=== PATIENT | female | born 1950 | race African-American/Black ===

== ENCOUNTER 2020-01-28 19:31 | Inpatient (IN) | payer MEDICARE, OTHER ==
[~2020-01-28] VITALS: Ht 172.7 cm; Wt 78.9 kg
[2020-01-28] MEDS ORDERED: KETAMINE HCL 50 MG/ML 10ML ONE (19:54)
[2020-01-28] MEDS ORDERED: PROPOFOL 10MG/ML 100ML 100 ML IV ONE (20:00)
[2020-01-28] MEDS ORDERED: KETAMINE HCL 50 MG/ML 10ML IV ONE (20:00)
[2020-01-28] MEDS ORDERED: SUCCINYLCHOLINE CHLORIDE 200MG/10ML IV ONE ×2 (20:00)
[2020-01-28] MEDS ORDERED: MORPHINE SULFATE 4 MG/ML CPJ (NOT FOR IM USE) IV STA (20:06)
[2020-01-28] MEDS ORDERED: ONDANSETRON HCL 4MG/2ML INJ IV STA (20:06)
[2020-01-28] MEDS ORDERED: METHYLPREDNISOLONE SOD SUCC 125 MG/2 ML VIAL IV ONE (20:15)
[2020-01-28] MEDS ORDERED: FAMOTIDINE 20MG/2ML VIAL IV ONE (20:15)
[2020-01-28] MEDS ORDERED: MIDAZOLAM HCL 50 MG in DEXTROSE 5% WATER 40 ML IV ONE (20:15)
[2020-01-28] MEDS ORDERED: DIPHENHYDRAMINE 50MG/ML VIAL IV ONE (20:15)
[2020-01-28] MEDS ORDERED: MIDAZOLAM HCL 2 MG/2 ML VIAL ONE (20:22)
[2020-01-28] MEDS ORDERED: MIDAZOLAM HCL 2 MG/2 ML VIAL IV ONE (20:30)
[2020-01-28] MEDS ORDERED: ACETAMINOPHEN 650MG SUPP PR PRN (20:30)
[2020-01-28] MEDS ORDERED: ONDANSETRON HCL 4MG/2ML INJ IV PRN (20:30)
[2020-01-28 20:48] LABS: BASOPHILS % 1.4 % (0.0-2.0); EOSINOPHILS % 4.7 % (0.0-5.0); HEMATOCRIT. 31.4 % (36.0-48.0); HEMOGLOBIN. 9.7 g/dL (12.0-16.0); LYMPHOCYTES % 20.7 % (20.0-50.0); MEAN CORPUSCULAR HEMOGLOBIN 23.1 pg (28.0-32.0); MEAN CORPUSCULAR VOLUME 74.8 fL (81.0-99.0); MEAN PLATELET VOLUME 8.7 fl (7.4-10.4); MONOCYTES % 10.1 % (2.0-8.0); NEUTROPHILS % 63.1 % (40.0-76.0); PLATELET 410 x1000/uL (130-400)
[2020-01-28 20:53] LABS: CHLORIDE 106 mEq/L (98-107)
[2020-01-28 21:10] LABS: BG BASE EXCESS -4.5 mmol/L (-2.0-2.0); BG CARBOXYHEMOGLOBIN 0.7 % (0.5-1.5); BG DEOXYHEMOGLOBIN 0.5 % (0.0-5.0); BG FRACTION INSPIRED OXYGEN 100; BG HCO3 ACT 22.1 mmol/L (22.0-26.0); BG OXYGEN SATURATION 99.5 % (92.0-98.5); BG OXYHEMOGLOBIN 98.8 % (94.0-97.0); BG PCO2 48.1 mmHg (35.0-45.0); BG PH 7.281 (7.350-7.450); BG PIP 40 cmH2O; BG PO2 312.9 mmHg (75.0-100.0); BG SAMPLE SITE RIGHT BRACHIAL; BG TIDAL VOLUME(mL) 500 mL; BG TOTAL HEMOGLOBIN 9.2 g/dL (12.0-18.0); BG VENT MODE VENT - A/C; BG VENT RATE 16 set
[2020-01-28] MEDS ORDERED: FAMOTIDINE 20MG/2ML VIAL IV SCH ×2 (22:00)
[2020-01-28] MEDS ORDERED: MIDAZOLAM HCL 50 MG in DEXTROSE 5% WATER 40 ML IV SCH (23:00)
[2020-01-29] VITALS (50 sets, daily range): BP systolic 97–144; BP diastolic 64–101
[2020-01-29] MEDS: METHYLPREDNISOLONE SOD SUCC 125 MG/2 ML VIAL IV SCH ×4 (01:00→18:07)
[2020-01-29] MEDS: HEPARIN 5000 UNITS/ML VIAL SUBCUT SCH ×3 (01:00→21:46)
[2020-01-29] MEDS ORDERED: PROPOFOL 10MG/ML 100ML 100 ML IV PRN ×2 (01:15→02:00)
[2020-01-29] MEDS ORDERED: MIDAZOLAM HCL 50 MG in DEXTROSE 5% WATER 40 ML IV PRN ×4 (02:00)
[2020-01-29] MEDS ORDERED: IPRATROPIUM/ALBUTEROL 0.5-3(2.5)MG/3ML NEB HHN PRN (02:00)
[2020-01-29] MEDS: SODIUM CHLORIDE 0.9% 1,000 ML IV SCH ×3 (02:57→23:00)
[2020-01-29] MEDS: FENTANYL CITRATE/PF 500 MCG in SODIUM CHLORIDE 0.9% 40 ML IV PRN (03:00)
[2020-01-29] MEDS: DIPHENHYDRAMINE 50MG/ML VIAL IV SCH ×3 (05:39→18:07)
[2020-01-29 05:56] LABS: CHLORIDE 110 mEq/L (98-107)
[2020-01-29 05:58] LABS: BASOPHILS % 0.9 % (0.0-2.0); EOSINOPHILS % 0.9 % (0.0-5.0); HEMATOCRIT. 29.9 % (36.0-48.0); HEMOGLOBIN. 9.2 g/dL (12.0-16.0); LYMPHOCYTES % 10.2 % (20.0-50.0); MEAN CORPUSCULAR HEMOGLOBIN 23.2 pg (28.0-32.0); MEAN CORPUSCULAR VOLUME 75.7 fL (81.0-99.0); MEAN PLATELET VOLUME 8.7 fl (7.4-10.4); MONOCYTES % 9.4 % (2.0-8.0); NEUTROPHILS % 78.6 % (40.0-76.0); PLATELET 300 x1000/uL (130-400); RED BLOOD CELL COUNT 3.95 mill/uL (4.2-5.4); RED CELL DISTRIBUTION WIDTH 19.9 % (11.6-14.6)
[2020-01-29] MEDS: IPRATROPIUM/ALBUTEROL 0.5-3(2.5)MG/3ML NEB HHN SCH ×3 (08:54→21:27)
[2020-01-29] MEDS ORDERED: GLIP5TAB12 MT (08:55)
[2020-01-29] MEDS ORDERED: BENA20TA10 MT (08:55)
[2020-01-29] MEDS ORDERED: ALBUL MT (08:55)
[2020-01-29] MEDS ORDERED: SIMV-43 PO (08:55)
[2020-01-29] MEDS ORDERED: AMLO10TA80 MT (08:55)
[2020-01-29] MEDS ORDERED: CALC-3 MT (08:55)
[2020-01-29 08:57] LABS: BG CARBOXYHEMOGLOBIN 0.3 % (0.5-1.5); BG DEOXYHEMOGLOBIN 4.3 % (0.0-5.0); BG FRACTION INSPIRED OXYGEN 40; BG HCO3 ACT 18.9 mmol/L (22.0-26.0); BG METHEMOGLOBIN 0.2 % (0.0-1.5); BG OXYGEN SATURATION 95.7 % (92.0-98.5); BG OXYHEMOGLOBIN 95.2 % (94.0-97.0); BG PCO2 34.8 mmHg (35.0-45.0); BG PH 7.352 (7.350-7.450); BG PO2 85.5 mmHg (75.0-100.0); BG SAMPLE SITE RIGHT RADIAL; BG TIDAL VOLUME(mL) 500 mL; BG TOTAL HEMOGLOBIN 9.7 g/dL (12.0-18.0); BG VENT MODE VENT - A/C; BG VENT RATE 16 set
[2020-01-29] MEDS ORDERED: FAMOTIDINE 20MG/2ML VIAL IV SCH (09:00)
[2020-01-29] MEDS: FAMOTIDINE 20MG/2ML VIAL IV SCH (09:35)
[2020-01-29] MEDS ORDERED: DEXTROSE 50% WATER 50ML SYRINGE IV PRN (09:45)
[2020-01-29] MEDS: INSULIN LISPRO 100 UNITS/ML SUBCUT SCH ×2 (12:00→18:00)
[2020-01-29] MEDS: BLOOD SUGAR DIAGNOSTIC STRIP TEST SCH ×2 (12:00→18:07)
[2020-01-29] MEDS: PROPOFOL 10MG/ML 100ML 100 ML IV PRN (15:12)
[2020-01-29] MEDS: AMLODIPINE 2.5MG TABLET NG SCH (21:45)
[2020-01-29] MEDS ORDERED: DIPHENHYDRAMINE 50MG/ML VIAL IV SCH (22:00)
[2020-01-30] VITALS (49 sets, daily range): BP systolic 116–157; BP diastolic 61–97
[2020-01-30] MEDS: METHYLPREDNISOLONE SOD SUCC 125 MG/2 ML VIAL IV SCH ×4 (00:58→17:47)
[2020-01-30] MEDS: DIPHENHYDRAMINE 50MG/ML VIAL IV SCH ×4 (00:58→17:47)
[2020-01-30] MEDS: PROPOFOL 10MG/ML 100ML 100 ML IV PRN ×5 (01:26→22:41)
[2020-01-30] MEDS: IPRATROPIUM/ALBUTEROL 0.5-3(2.5)MG/3ML NEB HHN SCH ×4 (02:38→20:20)
[2020-01-30 05:41] LABS: CHLORIDE 112 mEq/L (98-107)
[2020-01-30 05:49] LABS: HEMATOCRIT. 30.6 % (36.0-48.0); HEMOGLOBIN. 9.4 g/dL (12.0-16.0); MEAN CORPUSCULAR HEMOGLOBIN 23.1 pg (28.0-32.0); MEAN CORPUSCULAR VOLUME 75.6 fL (81.0-99.0); PLATELET 327 x1000/uL (130-400); RED BLOOD CELL COUNT 4.05 mill/uL (4.2-5.4)
[2020-01-30 05:58] LABS: HDL CHOLESTEROL 82 mg/dL (40-59); LDL CHOLESTEROL 98 mg/dL (5-100)
[2020-01-30] MEDS: INSULIN LISPRO 100 UNITS/ML SUBCUT SCH ×4 (06:00→18:00)
[2020-01-30] MEDS: BLOOD SUGAR DIAGNOSTIC STRIP TEST SCH ×4 (06:54→18:58)
[2020-01-30 08:02] LABS: PLATELET ESTIMATE NORMAL
[2020-01-30] MEDS: FAMOTIDINE 20MG/2ML VIAL IV SCH (08:43)
[2020-01-30] MEDS: AMLODIPINE 2.5MG TABLET NG SCH ×2 (08:43→21:07)
[2020-01-30] MEDS: HEPARIN 5000 UNITS/ML VIAL SUBCUT SCH ×2 (08:43→21:08)
[2020-01-30] MEDS: FENTANYL CITRATE/PF 500 MCG in SODIUM CHLORIDE 0.9% 40 ML IV PRN (13:27)
[2020-01-31] VITALS (51 sets, daily range): BP systolic 118–164; BP diastolic 67–100
[2020-01-31] MEDS: DIPHENHYDRAMINE 50MG/ML VIAL IV SCH ×2 (00:34→05:03)
[2020-01-31] MEDS: METHYLPREDNISOLONE SOD SUCC 125 MG/2 ML VIAL IV SCH ×5 (00:34→23:50)
[2020-01-31] MEDS: BLOOD SUGAR DIAGNOSTIC STRIP TEST SCH ×5 (00:44→23:41)
[2020-01-31] MEDS: INSULIN LISPRO 100 UNITS/ML SUBCUT SCH ×5 (01:18→23:50)
[2020-01-31] MEDS: IPRATROPIUM/ALBUTEROL 0.5-3(2.5)MG/3ML NEB HHN SCH ×4 (01:53→20:05)
[2020-01-31] MEDS: PROPOFOL 10MG/ML 100ML 100 ML IV PRN ×4 (04:15→22:42)
[2020-01-31 05:51] LABS: HEMATOCRIT. 28.8 % (36.0-48.0); HEMOGLOBIN. 8.8 g/dL (12.0-16.0); MEAN CORPUSCULAR HEMOGLOBIN 22.9 pg (28.0-32.0); MEAN CORPUSCULAR VOLUME 75.1 fL (81.0-99.0); MEAN PLATELET VOLUME 8.9 fl (7.4-10.4); PLATELET 366 x1000/uL (130-400); RED BLOOD CELL COUNT 3.83 mill/uL (4.2-5.4); RED CELL DISTRIBUTION WIDTH 20.5 % (11.6-14.6)
[2020-01-31 06:41] LABS: CHLORIDE 112 mEq/L (98-107)
[2020-01-31] MEDS: HEPARIN 5000 UNITS/ML VIAL SUBCUT SCH ×2 (08:19→20:55)
[2020-01-31] MEDS: AMLODIPINE 2.5MG TABLET NG SCH ×2 (08:19→20:54)
[2020-01-31] MEDS: FAMOTIDINE 20MG/2ML VIAL IV SCH (08:19)
[2020-01-31 09:18] LABS: BG BASE EXCESS -1.6 mmol/L (-2.0-2.0); BG CARBOXYHEMOGLOBIN 0.3 % (0.5-1.5); BG FRACTION INSPIRED OXYGEN 40; BG HCO3 ACT 23.3 mmol/L (22.0-26.0); BG METHEMOGLOBIN 0.1 % (0.0-1.5); BG OXYHEMOGLOBIN 93.6 % (94.0-97.0); BG PCO2 39.6 mmHg (35.0-45.0); BG PH 7.387 (7.350-7.450); BG PO2 72.7 mmHg (75.0-100.0); BG SAMPLE SITE RIGHT RADIAL; BG TIDAL VOLUME(mL) 500 mL; BG TOTAL HEMOGLOBIN 9.5 g/dL (12.0-18.0); BG VENT MODE VENT - A/C; BG VENT RATE 16 set
[2020-01-31 10:58] LABS: PLATELET ESTIMATE NORMAL
[2020-01-31] MEDS: DIPHENHYDRAMINE 50MG/ML VIAL IV PRN ×3 (11:24→23:50)
[2020-02-01] VITALS (45 sets, daily range): BP systolic 120–175; BP diastolic 77–108
[2020-02-01] MEDS: IPRATROPIUM/ALBUTEROL 0.5-3(2.5)MG/3ML NEB HHN SCH ×4 (01:32→20:54)
[2020-02-01] MEDS: PROPOFOL 10MG/ML 100ML 100 ML IV PRN ×3 (03:36→21:48)
[2020-02-01 05:28] LABS: HEMATOCRIT. 29.1 % (36.0-48.0); HEMOGLOBIN. 8.9 g/dL (12.0-16.0); MEAN CORPUSCULAR HEMOGLOBIN 22.9 pg (28.0-32.0); MEAN CORPUSCULAR VOLUME 75.1 fL (81.0-99.0); MEAN PLATELET VOLUME 8.4 fl (7.4-10.4); PLATELET 376 x1000/uL (130-400); RED BLOOD CELL COUNT 3.88 mill/uL (4.2-5.4); RED CELL DISTRIBUTION WIDTH 19.6 % (11.6-14.6)
[2020-02-01 05:40] LABS: CHLORIDE 113 mEq/L (98-107)
[2020-02-01] MEDS: BLOOD SUGAR DIAGNOSTIC STRIP TEST SCH ×3 (05:43→17:19)
[2020-02-01] MEDS: DIPHENHYDRAMINE 50MG/ML VIAL IV PRN ×3 (05:53→20:35)
[2020-02-01] MEDS: METHYLPREDNISOLONE SOD SUCC 125 MG/2 ML VIAL IV SCH ×3 (05:53→17:12)
[2020-02-01] MEDS: INSULIN LISPRO 100 UNITS/ML SUBCUT SCH ×3 (05:55→17:22)
[2020-02-01] MEDS: FAMOTIDINE 20MG/2ML VIAL IV SCH (08:21)
[2020-02-01] MEDS: HEPARIN 5000 UNITS/ML VIAL SUBCUT SCH ×2 (08:22→20:33)
[2020-02-01] MEDS: AMLODIPINE 2.5MG TABLET NG SCH (08:23)
[2020-02-01 10:14] LABS: BG BASE EXCESS -4.5 mmol/L (-2.0-2.0); BG CARBOXYHEMOGLOBIN 0.2 % (0.5-1.5); BG FRACTION INSPIRED OXYGEN 50; BG METHEMOGLOBIN 0.4 % (0.0-1.5); BG OXYHEMOGLOBIN 94.4 % (94.0-97.0); BG PCO2 34.5 mmHg (35.0-45.0); BG PH 7.382 (7.350-7.450); BG PO2 84.7 mmHg (75.0-100.0); BG SAMPLE SITE RIGHT RADIAL; BG TIDAL VOLUME(mL) 500 mL; BG TOTAL HEMOGLOBIN 8.7 g/dL (12.0-18.0); BG VENT MODE VENT - A/C; BG VENT RATE 16 set
[2020-02-01 10:20] LABS: PLATELET ESTIMATE NORMAL
[2020-02-01] MEDS: AMLODIPINE 5MG TABLET NG SCH (20:33)
[2020-02-02] VITALS (47 sets, daily range): BP systolic 139–174; BP diastolic 78–106
[2020-02-02] MEDS: BLOOD SUGAR DIAGNOSTIC STRIP TEST SCH ×4 (00:14→17:08)
[2020-02-02] MEDS: METHYLPREDNISOLONE SOD SUCC 125 MG/2 ML VIAL IV SCH ×4 (00:19→17:07)
[2020-02-02] MEDS: INSULIN LISPRO 100 UNITS/ML SUBCUT SCH ×4 (00:20→17:08)
[2020-02-02] MEDS: IPRATROPIUM/ALBUTEROL 0.5-3(2.5)MG/3ML NEB HHN SCH ×4 (01:59→20:21)
[2020-02-02 05:34] LABS: HEMATOCRIT. 29.6 % (36.0-48.0); HEMOGLOBIN. 9.1 g/dL (12.0-16.0); MEAN CORPUSCULAR HEMOGLOBIN 23.1 pg (28.0-32.0); MEAN CORPUSCULAR VOLUME 74.9 fL (81.0-99.0); MEAN PLATELET VOLUME 8.6 fl (7.4-10.4); PLATELET 361 x1000/uL (130-400); RED BLOOD CELL COUNT 3.96 mill/uL (4.2-5.4); RED CELL DISTRIBUTION WIDTH 20.3 % (11.6-14.6)
[2020-02-02 05:41] LABS: CHLORIDE 113 mEq/L (98-107)
[2020-02-02] MEDS: PROPOFOL 10MG/ML 100ML 100 ML IV PRN (06:49)
[2020-02-02 08:07] LABS: PLATELET ESTIMATE NORMAL
[2020-02-02] MEDS: HEPARIN 5000 UNITS/ML VIAL SUBCUT SCH ×2 (08:10→22:04)
[2020-02-02] MEDS: DIPHENHYDRAMINE 50MG/ML VIAL IV SCH ×3 (08:10→22:04)
[2020-02-02] MEDS: FAMOTIDINE 20MG/2ML VIAL IV SCH ×2 (08:10→22:04)
[2020-02-02] MEDS: AMLODIPINE 5MG TABLET NG SCH ×2 (08:11→22:04)
[2020-02-02] MEDS: HYDRALAZINE 20MG/ML VIAL IV PRN (09:03)
[2020-02-02 09:19] LABS: BG BASE EXCESS 1.5 mmol/L (-2.0-2.0); BG CARBOXYHEMOGLOBIN 0.3 % (0.5-1.5); BG DEOXYHEMOGLOBIN 2.9 % (0.0-5.0); BG FRACTION INSPIRED OXYGEN 50; BG HCO3 ACT 26.7 mmol/L (22.0-26.0); BG METHEMOGLOBIN 0.1 % (0.0-1.5); BG OXYGEN SATURATION 97.1 % (92.0-98.5); BG OXYHEMOGLOBIN 96.7 % (94.0-97.0); BG PCO2 44.9 mmHg (35.0-45.0); BG PH 7.392 (7.350-7.450); BG PO2 94.6 mmHg (75.0-100.0); BG SAMPLE SITE RIGHT RADIAL; BG TIDAL VOLUME(mL) 500 mL; BG TOTAL HEMOGLOBIN 9.6 g/dL (12.0-18.0); BG VENT MODE VENT - A/C; BG VENT RATE 12 set
[2020-02-02] MEDS: HYDRALAZINE HCL 25MG TABLET NG SCH ×3 (12:00→22:39)
[2020-02-02] MEDS ORDERED: PROPOFOL 10MG/ML 100ML 100 ML IV PRN (13:15)
[2020-02-02] MEDS ORDERED: MORPHINE SULFATE 2 MG/ML CPJ (NOT FOR IM USE) IV PRN (14:15)
[2020-02-02] MEDS: MIDAZOLAM HCL 50 MG in DEXTROSE 5% WATER 40 ML IV PRN (15:41)
[2020-02-02] MEDS: MONTELUKAST SODIUM 10MG TABLET PO SCH (15:41)
[2020-02-02] MEDS: RACEPINEPHRINE 2.25% 0.5ML NEB VIAL HHN SCH ×2 (17:19→21:11)
[2020-02-02] MEDS ORDERED: DIPHENHYDRAMINE 50MG/ML VIAL IV SCH (20:00)
[2020-02-03] VITALS (38 sets, daily range): BP systolic 143–163; BP diastolic 82–118
[2020-02-03] MEDS: IPRATROPIUM/ALBUTEROL 0.5-3(2.5)MG/3ML NEB HHN SCH ×6 (00:08→19:53)
[2020-02-03] MEDS: RACEPINEPHRINE 2.25% 0.5ML NEB VIAL HHN SCH ×4 (00:08→15:41)
[2020-02-03] MEDS: BLOOD SUGAR DIAGNOSTIC STRIP TEST SCH ×5 (00:27→23:36)
[2020-02-03] MEDS: METHYLPREDNISOLONE SOD SUCC 125 MG/2 ML VIAL IV SCH ×5 (00:33→23:40)
[2020-02-03] MEDS: INSULIN LISPRO 100 UNITS/ML SUBCUT SCH ×5 (00:34→23:40)
[2020-02-03] MEDS: DIPHENHYDRAMINE 50MG/ML VIAL IV SCH ×2 (03:20→09:08)
[2020-02-03] MEDS: HYDRALAZINE HCL 25MG TABLET NG SCH (05:31)
[2020-02-03 05:33] LABS: HEMATOCRIT. 28.7 % (36.0-48.0); HEMOGLOBIN. 8.8 g/dL (12.0-16.0); MEAN CORPUSCULAR HEMOGLOBIN 22.6 pg (28.0-32.0); MEAN CORPUSCULAR VOLUME 74.1 fL (81.0-99.0); MEAN PLATELET VOLUME 8.8 fl (7.4-10.4); PLATELET 346 x1000/uL (130-400); RED BLOOD CELL COUNT 3.88 mill/uL (4.2-5.4); RED CELL DISTRIBUTION WIDTH 20.2 % (11.6-14.6)
[2020-02-03 05:39] LABS: CHLORIDE 110 mEq/L (98-107)
[2020-02-03] MEDS: MIDAZOLAM HCL 50 MG in DEXTROSE 5% WATER 40 ML IV PRN (07:19)
[2020-02-03 07:47] LABS: NUCLEATED RED BLOOD CELLS 1 /100 WBC
[2020-02-03 07:48] LABS: PLATELET ESTIMATE NORMAL
[2020-02-03] MEDS: FAMOTIDINE 20MG/2ML VIAL IV SCH ×2 (08:23→21:37)
[2020-02-03] MEDS: HEPARIN 5000 UNITS/ML VIAL SUBCUT SCH ×2 (08:23→21:36)
[2020-02-03] MEDS: AMLODIPINE 5MG TABLET NG SCH ×2 (08:24→21:36)
[2020-02-03] MEDS ORDERED: INSULIN GLARGINE UD 100 UNITS/ML SYR SUBCUT SCH (10:00)
[2020-02-03] MEDS: HYDRALAZINE HCL 50MG TABLET NG SCH ×2 (13:12→23:40)
[2020-02-03] MEDS ORDERED: DOCUSATE SODIUM SUGAR FREE 100MG/10ML UDC NG PRN (13:30)
[2020-02-03] MEDS ORDERED: SENNOSIDES/DOCUSATE SOD 8.6/50MG TABLET NG PRN (13:30)
[2020-02-03] MEDS ORDERED: POLYETHYLENE GLYCOL 3350 (17GM) 1 DOSE PACK NG PRN (13:30)
[2020-02-03] MEDS ORDERED: MAGNESIUM HYDROXIDE 400MG/5ML 30ML UDC NG PRN (13:30)
[2020-02-03] MEDS ORDERED: MAGNESIUM CITRATE 300ML SOLUTION NG NR (14:30)
[2020-02-03] MEDS: CEFTRIAXONE 1 G PREMIX 50 ML IV SCH (16:01)
[2020-02-03] MEDS: MONTELUKAST SODIUM 10MG TABLET PO SCH (17:08)
[2020-02-04] VITALS (43 sets, daily range): BP systolic 127–176; BP diastolic 82–110
[2020-02-04] MEDS: IPRATROPIUM/ALBUTEROL 0.5-3(2.5)MG/3ML NEB HHN SCH (00:04)
[2020-02-04] MEDS: MIDAZOLAM HCL 50 MG in DEXTROSE 5% WATER 40 ML IV PRN (04:53)
[2020-02-04] MEDS: BLOOD SUGAR DIAGNOSTIC STRIP TEST SCH ×3 (05:08→17:15)
[2020-02-04] MEDS: METHYLPREDNISOLONE SOD SUCC 125 MG/2 ML VIAL IV SCH ×2 (05:18→11:23)
[2020-02-04] MEDS: HYDRALAZINE HCL 50MG TABLET NG SCH ×3 (05:18→21:58)
[2020-02-04] MEDS: INSULIN LISPRO 100 UNITS/ML SUBCUT SCH ×3 (05:20→17:20)
[2020-02-04 05:49] LABS: HEMATOCRIT. 29.1 % (36.0-48.0); MEAN CORPUSCULAR VOLUME 74.3 fL (81.0-99.0); MEAN PLATELET VOLUME 8.8 fl (7.4-10.4); PLATELET 349 x1000/uL (130-400); RED BLOOD CELL COUNT 3.92 mill/uL (4.2-5.4); RED CELL DISTRIBUTION WIDTH 19.6 % (11.6-14.6)
[2020-02-04 05:53] LABS: CHLORIDE 107 mEq/L (98-107)
[2020-02-04] MEDS: FAMOTIDINE 20MG/2ML VIAL IV SCH ×2 (08:10→21:57)
[2020-02-04] MEDS: HEPARIN 5000 UNITS/ML VIAL SUBCUT SCH ×2 (08:10→21:57)
[2020-02-04] MEDS: AMLODIPINE 5MG TABLET NG SCH ×2 (08:10→21:00)
[2020-02-04] MEDS: BISACODYL 10MG SUPP PR PRN (09:23)
[2020-02-04] MEDS ORDERED: INSULIN GLARGINE UD 100 UNITS/ML SYR SUBCUT SCH (10:00)
[2020-02-04] MEDS: HYDRALAZINE 20MG/ML VIAL IV PRN (10:11)
[2020-02-04 10:27] LABS: PLATELET ESTIMATE NORMAL
[2020-02-04] MEDS ORDERED: CLONIDINE 0.1MG TABLET PO SCH (10:30)
[2020-02-04] MEDS: CEFTRIAXONE 1 G PREMIX 50 ML IV SCH (15:14)
[2020-02-04] MEDS: MONTELUKAST SODIUM 10MG TABLET PO SCH (17:00)
[2020-02-04] MEDS ORDERED: CLONIDINE 0.1MG TABLET NG SCH (18:00)
[2020-02-04] MEDS: METHYLPREDNISOLONE SOD SUCC 40 MG/ML VIAL IV SCH (18:34)
[2020-02-04] MEDS: LABETALOL HCL 100MG TABLET PO SCH (21:00)
[2020-02-05] VITALS (37 sets, daily range): BP systolic 110–154; BP diastolic 68–102
[2020-02-05] MEDS: ACETYLCYSTEINE 100MG/ML 10% VIAL 4ML INH SCH ×3 (00:14→15:38)
[2020-02-05] MEDS: IPRATROPIUM/ALBUTEROL 0.5-3(2.5)MG/3ML NEB HHN SCH ×3 (00:14→13:37)
[2020-02-05] MEDS: METHYLPREDNISOLONE SOD SUCC 40 MG/ML VIAL IV SCH ×4 (00:21→17:15)
[2020-02-05] MEDS: BLOOD SUGAR DIAGNOSTIC STRIP TEST SCH ×4 (00:21→17:10)
[2020-02-05] MEDS: MIDAZOLAM HCL 50 MG in DEXTROSE 5% WATER 40 ML IV PRN ×2 (05:10→21:40)
[2020-02-05] MEDS: DIPHENHYDRAMINE 50MG/ML VIAL IV PRN ×2 (05:10→14:58)
[2020-02-05] MEDS: INSULIN LISPRO 100 UNITS/ML SUBCUT SCH ×4 (05:24→17:26)
[2020-02-05 05:50] LABS: HEMATOCRIT. 30.6 % (36.0-48.0); HEMOGLOBIN. 9.3 g/dL (12.0-16.0); MEAN CORPUSCULAR HEMOGLOBIN 22.6 pg (28.0-32.0); MEAN CORPUSCULAR VOLUME 74.5 fL (81.0-99.0); MEAN PLATELET VOLUME 8.6 fl (7.4-10.4); PLATELET 314 x1000/uL (130-400); RED BLOOD CELL COUNT 4.11 mill/uL (4.2-5.4); RED CELL DISTRIBUTION WIDTH 19.8 % (11.6-14.6)
[2020-02-05 05:53] LABS: CHLORIDE 109 mEq/L (98-107)
[2020-02-05] MEDS: HYDRALAZINE HCL 50MG TABLET NG SCH ×4 (06:00→21:17)
[2020-02-05 07:51] LABS: PLATELET ESTIMATE NORMAL
[2020-02-05] MEDS: LABETALOL HCL 100MG TABLET PO SCH ×2 (09:00→21:00)
[2020-02-05] MEDS: AMLODIPINE 5MG TABLET NG SCH ×2 (09:45→21:00)
[2020-02-05] MEDS: FAMOTIDINE 20MG/2ML VIAL IV SCH (09:45)
[2020-02-05] MEDS: HEPARIN 5000 UNITS/ML VIAL SUBCUT SCH ×2 (09:45→21:39)
[2020-02-05] MEDS ORDERED: INSULIN GLARGINE UD 100 UNITS/ML SYR SUBCUT SCH (10:00)
[2020-02-05] MEDS: INSULIN GLARGINE UD 100 UNITS/ML SYR SUBCUT SCH (10:11)
[2020-02-05] MEDS: AMPICILLIN SOD/SULBACTAM NA 1.5 G in SODIUM CHLORIDE 0.9% 50 ML IV SCH ×2 (14:45→17:15)
[2020-02-05] MEDS: PANTOPRAZOLE SODIUM 40 MG/VIAL IV SCH ×2 (14:57→21:39)
[2020-02-05] MEDS: MONTELUKAST SODIUM 10MG TABLET PO SCH (16:57)
[2020-02-05] MEDS: BISACODYL 10MG SUPP PR PRN (17:15)
[2020-02-06] VITALS (40 sets, daily range): BP systolic 94–186; BP diastolic 51–96
[2020-02-06] MEDS: BLOOD SUGAR DIAGNOSTIC STRIP TEST SCH ×5 (00:01→23:12)
[2020-02-06] MEDS: AMPICILLIN SOD/SULBACTAM NA 1.5 G in SODIUM CHLORIDE 0.9% 50 ML IV SCH ×5 (00:01→23:12)
[2020-02-06] MEDS: METHYLPREDNISOLONE SOD SUCC 40 MG/ML VIAL IV SCH ×5 (00:01→23:12)
[2020-02-06] MEDS: DIPHENHYDRAMINE 50MG/ML VIAL IV PRN ×2 (00:01→09:12)
[2020-02-06] MEDS: IPRATROPIUM/ALBUTEROL 0.5-3(2.5)MG/3ML NEB HHN SCH ×3 (00:43→16:07)
[2020-02-06] MEDS: ACETYLCYSTEINE 100MG/ML 10% VIAL 4ML INH SCH ×3 (00:44→16:07)
[2020-02-06] MEDS: HYDRALAZINE HCL 50MG TABLET NG SCH ×3 (04:55→23:12)
[2020-02-06 05:36] LABS: HEMATOCRIT. 30.2 % (36.0-48.0); HEMOGLOBIN. 9.2 g/dL (12.0-16.0); MEAN CORPUSCULAR HEMOGLOBIN 22.8 pg (28.0-32.0); MEAN CORPUSCULAR VOLUME 74.7 fL (81.0-99.0); MEAN PLATELET VOLUME 8.8 fl (7.4-10.4); PLATELET 281 x1000/uL (130-400); RED BLOOD CELL COUNT 4.05 mill/uL (4.2-5.4); RED CELL DISTRIBUTION WIDTH 19.8 % (11.6-14.6)
[2020-02-06 05:37] LABS: CHLORIDE 110 mEq/L (98-107)
[2020-02-06] MEDS: INSULIN LISPRO 100 UNITS/ML SUBCUT SCH ×4 (05:42→17:15)
[2020-02-06] MEDS: AMLODIPINE 5MG TABLET NG SCH ×2 (09:00→21:27)
[2020-02-06] MEDS: LABETALOL HCL 100MG TABLET PO SCH ×2 (09:00→21:27)
[2020-02-06] MEDS: PANTOPRAZOLE SODIUM 40 MG/VIAL IV SCH ×2 (09:12→21:06)
[2020-02-06] MEDS: HEPARIN 5000 UNITS/ML VIAL SUBCUT SCH ×2 (09:13→21:07)
[2020-02-06 09:15] LABS: BG BASE EXCESS 6.8 mmol/L (-2.0-2.0); BG CARBOXYHEMOGLOBIN 0.5 % (0.5-1.5); BG DEOXYHEMOGLOBIN 5.3 % (0.0-5.0); BG FRACTION INSPIRED OXYGEN 40; BG HCO3 ACT 31.2 mmol/L (22.0-26.0); BG METHEMOGLOBIN 0.2 % (0.0-1.5); BG OXYGEN SATURATION 94.7 % (92.0-98.5); BG PCO2 43.9 mmHg (35.0-45.0); BG PH 7.469 (7.350-7.450); BG PO2 74.4 mmHg (75.0-100.0); BG PRESSURE SUPPORT 15; BG SAMPLE SITE RIGHT RADIAL; BG TIDAL VOLUME(mL) 500 mL; BG TOTAL HEMOGLOBIN 10.3 g/dL (12.0-18.0); BG VENT MODE VENT - SIMV; BG VENT RATE 12 set
[2020-02-06 09:20] LABS: PLATELET ESTIMATE NORMAL
[2020-02-06] MEDS: INSULIN GLARGINE UD 100 UNITS/ML SYR SUBCUT SCH (12:55)
[2020-02-06] MEDS: MONTELUKAST SODIUM 10MG TABLET PO SCH (16:31)
[2020-02-06 17:21] LABS: BG BASE EXCESS 6.5 mmol/L (-2.0-2.0); BG CARBOXYHEMOGLOBIN 0.1 % (0.5-1.5); BG FRACTION INSPIRED OXYGEN 40; BG HCO3 ACT 30.8 mmol/L (22.0-26.0); BG METHEMOGLOBIN 0.3 % (0.0-1.5); BG OXYHEMOGLOBIN 93.6 % (94.0-97.0); BG PH 7.473 (7.350-7.450); BG PRESSURE SUPPORT 8; BG SAMPLE SITE RIGHT RADIAL; BG TOTAL HEMOGLOBIN 10.6 g/dL (12.0-18.0); BG VENT MODE VENT - CPAP
[2020-02-07] VITALS (23 sets, daily range): BP systolic 58–155; BP diastolic 31–102
[2020-02-07] MEDS: IPRATROPIUM/ALBUTEROL 0.5-3(2.5)MG/3ML NEB HHN SCH ×2 (00:44→01:53)
[2020-02-07] MEDS: ACETYLCYSTEINE 100MG/ML 10% VIAL 4ML INH SCH (00:44)
[2020-02-07] MEDS: METHYLPREDNISOLONE SOD SUCC 40 MG/ML VIAL IV SCH ×2 (05:23→17:42)
[2020-02-07] MEDS: HYDRALAZINE HCL 50MG TABLET NG SCH ×3 (05:23→21:00)
[2020-02-07] MEDS: AMPICILLIN SOD/SULBACTAM NA 1.5 G in SODIUM CHLORIDE 0.9% 50 ML IV SCH ×4 (05:24→23:48)
[2020-02-07] MEDS: BLOOD SUGAR DIAGNOSTIC STRIP TEST SCH ×4 (05:24→23:52)
[2020-02-07] MEDS: INSULIN LISPRO 100 UNITS/ML SUBCUT SCH ×5 (05:36→23:56)
[2020-02-07 06:37] LABS: HEMATOCRIT. 32.1 % (36.0-48.0); HEMOGLOBIN. 9.6 g/dL (12.0-16.0); MEAN CORPUSCULAR HEMOGLOBIN 22.4 pg (28.0-32.0); MEAN CORPUSCULAR VOLUME 74.6 fL (81.0-99.0); MEAN PLATELET VOLUME 9.7 fl (7.4-10.4); PLATELET 256 x1000/uL (130-400); RED CELL DISTRIBUTION WIDTH 20.6 % (11.6-14.6)
[2020-02-07 06:41] LABS: CHLORIDE 112 mEq/L (98-107)
[2020-02-07] MEDS: LABETALOL HCL 100MG TABLET PO SCH ×2 (09:00→20:39)
[2020-02-07] MEDS: PANTOPRAZOLE SODIUM 40 MG/VIAL IV SCH (09:47)
[2020-02-07] MEDS: AMLODIPINE 5MG TABLET NG SCH ×2 (09:47→20:40)
[2020-02-07] MEDS: HEPARIN 5000 UNITS/ML VIAL SUBCUT SCH ×2 (09:47→20:39)
[2020-02-07] MEDS: INSULIN GLARGINE UD 100 UNITS/ML SYR SUBCUT SCH (09:49)
[2020-02-07 12:09] LABS: FOLIC ACID (FOLATE) SERUM 9.9 ng/mL (>5.38)
[2020-02-07 12:16] LABS: TOTAL IRON BINDING CAPACITY 343 ug/dL (250-450)
[2020-02-07 13:45] LABS: PLATELET ESTIMATE NORMAL
[2020-02-07] MEDS: MONTELUKAST SODIUM 10MG TABLET PO SCH (17:42)
[2020-02-07] MEDS: DIPHENHYDRAMINE 50MG/ML VIAL IV PRN (20:40)
[2020-02-07] MEDS: FAMOTIDINE 20MG/2ML VIAL IV SCH (20:40)
[2020-02-08] VITALS (12 sets, daily range): BP systolic 126–158; BP diastolic 55–97
[2020-02-08] MEDS: METHYLPREDNISOLONE SOD SUCC 40 MG/ML VIAL IV SCH ×2 (05:49→18:00)
[2020-02-08] MEDS: AMPICILLIN SOD/SULBACTAM NA 1.5 G in SODIUM CHLORIDE 0.9% 50 ML IV SCH ×3 (05:49→18:01)
[2020-02-08] MEDS: HYDRALAZINE HCL 50MG TABLET NG SCH ×3 (05:49→21:05)
[2020-02-08] MEDS: INSULIN LISPRO 100 UNITS/ML SUBCUT SCH ×4 (05:50→21:00)
[2020-02-08] MEDS: BLOOD SUGAR DIAGNOSTIC STRIP TEST SCH ×4 (05:51→21:00)
[2020-02-08] MEDS: HEPARIN 5000 UNITS/ML VIAL SUBCUT SCH ×2 (08:51→21:05)
[2020-02-08] MEDS: FAMOTIDINE 20MG/2ML VIAL IV SCH (08:51)
[2020-02-08] MEDS: INSULIN GLARGINE UD 100 UNITS/ML SYR SUBCUT SCH ×2 (10:09→21:08)
[2020-02-08] MEDS: AMLODIPINE 5MG TABLET NG SCH ×2 (10:20→21:05)
[2020-02-08] MEDS: LABETALOL HCL 100MG TABLET PO SCH ×2 (10:20→21:05)
[2020-02-08 15:44] LABS: BG BASE EXCESS -0.1 mmol/L (-2.0-2.0); BG CARBOXYHEMOGLOBIN 0.3 % (0.5-1.5); BG DEOXYHEMOGLOBIN 4.5 % (0.0-5.0); BG FRACTION INSPIRED OXYGEN 36; BG HCO3 ACT 23.3 mmol/L (22.0-26.0); BG METHEMOGLOBIN 0.3 % (0.0-1.5); BG OXYGEN SATURATION 95.5 % (92.0-98.5); BG OXYHEMOGLOBIN 94.9 % (94.0-97.0); BG PCO2 33.2 mmHg (35.0-45.0); BG PH 7.464 (7.350-7.450); BG PO2 76.3 mmHg (75.0-100.0); BG SAMPLE SITE RIGHT RADIAL; BG TOTAL HEMOGLOBIN 10.1 g/dL (12.0-18.0); BG VENT MODE NASAL CANNULA
[2020-02-08] MEDS: MONTELUKAST SODIUM 10MG TABLET PO SCH (18:00)
[2020-02-08] MEDS: FAMOTIDINE 20MG TABLET NG SCH (21:05)
[2020-02-09] VITALS (12 sets, daily range): BP systolic 127–153; BP diastolic 66–99
[2020-02-09 00:03] LABS: CLARITY URINE CLEAR (CLEAR); COLOR URINE YELLOW (YELLOW); KETONES URINE NEGATIVE (NEGATIVE); LEUKOCYTE ESTERASE URINE NEGATIVE (NEGATIVE); NITRITE URINE NEGATIVE (NEGATIVE); OCCULT BLOOD URINE 1+ (NEGATIVE); PROTEIN URINE TRACE (NEGATIVE); UROBILINOGEN URINE 0.2 E.U./dL (0.2-1.0)
[2020-02-09] MEDS: AMPICILLIN SOD/SULBACTAM NA 1.5 G in SODIUM CHLORIDE 0.9% 50 ML IV SCH ×4 (00:25→18:28)
[2020-02-09] MEDS: METHYLPREDNISOLONE SOD SUCC 40 MG/ML VIAL IV SCH (05:39)
[2020-02-09] MEDS: HYDRALAZINE HCL 50MG TABLET NG SCH ×3 (05:39→22:20)
[2020-02-09] MEDS: INSULIN LISPRO 100 UNITS/ML SUBCUT SCH ×4 (06:22→21:00)
[2020-02-09] MEDS: BLOOD SUGAR DIAGNOSTIC STRIP TEST SCH ×4 (06:22→21:54)
[2020-02-09 06:42] LABS: HEMATOCRIT. 29.2 % (36.0-48.0); HEMOGLOBIN. 9.1 g/dL (12.0-16.0); MEAN CORPUSCULAR HEMOGLOBIN 22.8 pg (28.0-32.0); MEAN CORPUSCULAR VOLUME 73.5 fL (81.0-99.0); PLATELET 141 x1000/uL (130-400); RED BLOOD CELL COUNT 3.97 mill/uL (4.2-5.4); RED CELL DISTRIBUTION WIDTH 19.7 % (11.6-14.6)
[2020-02-09 06:58] LABS: CHLORIDE 104 mEq/L (98-107)
[2020-02-09] MEDS: LABETALOL HCL 100MG TABLET PO SCH ×2 (08:26→22:18)
[2020-02-09] MEDS: HEPARIN 5000 UNITS/ML VIAL SUBCUT SCH ×2 (08:26→22:18)
[2020-02-09] MEDS: FAMOTIDINE 20MG TABLET NG SCH ×2 (08:26→22:17)
[2020-02-09] MEDS: AMLODIPINE 5MG TABLET NG SCH (08:26)
[2020-02-09] MEDS: INSULIN GLARGINE UD 100 UNITS/ML SYR SUBCUT SCH (11:25)
[2020-02-09] MEDS ORDERED: ACETYLCYSTEINE 100MG/ML 10% VIAL 4ML INH SCH (14:00)
[2020-02-09] MEDS: MONTELUKAST SODIUM 10MG TABLET PO SCH (16:04)
[2020-02-09] MEDS: CLONIDINE 0.1MG TABLET PO SCH ×2 (16:05→22:21)
[2020-02-09 17:43] LABS: PLATELET ESTIMATE NORMAL
[2020-02-09] MEDS: AMLODIPINE 5MG TABLET PO SCH (22:17)
[2020-02-10] VITALS (9 sets, daily range): BP systolic 109–135; BP diastolic 65–83
[2020-02-10] MEDS: AMPICILLIN SOD/SULBACTAM NA 1.5 G in SODIUM CHLORIDE 0.9% 50 ML IV SCH ×2 (00:46→06:17)
[2020-02-10] MEDS: CLONIDINE 0.1MG TABLET PO SCH (06:00)
[2020-02-10] MEDS: HYDRALAZINE HCL 50MG TABLET NG SCH (06:00)
[2020-02-10] MEDS: BLOOD SUGAR DIAGNOSTIC STRIP TEST SCH ×2 (06:23→12:30)
[2020-02-10] MEDS: INSULIN LISPRO 100 UNITS/ML SUBCUT SCH ×2 (06:27→12:43)
[2020-02-10] MEDS: IPRATROPIUM/ALBUTEROL 0.5-3(2.5)MG/3ML NEB HHN SCH (07:59)
[2020-02-10] MEDS: LABETALOL HCL 100MG TABLET PO SCH (08:22)
[2020-02-10] MEDS: FAMOTIDINE 20MG TABLET NG SCH (08:22)
[2020-02-10] MEDS: AMLODIPINE 5MG TABLET PO SCH (08:23)
[2020-02-10] MEDS: HEPARIN 5000 UNITS/ML VIAL SUBCUT SCH (08:26)
[2020-02-10] MEDS ORDERED: PREDNISONE 20MG TABLET PO SCH (09:00)
[2020-02-10] MEDS ORDERED: INSULIN GLARGINE UD 100 UNITS/ML SYR SUBCUT SCH (10:00)
[2020-02-10] MEDS ORDERED: SENN-3 NG (12:03)
[2020-02-10] MEDS ORDERED: MONT10TA21 PO (12:03)
[2020-02-10] MEDS ORDERED: P20 PO (12:03)
[2020-02-10] MEDS ORDERED: HYDR-4135 NG (12:09)
[2020-02-10] MEDS ORDERED: LABE100T5 PO (12:09)
== END 2020-02-10 13:48 | disposition home health service (06) | DRG 870 ==
LOC: ER 19:31 → CVICU 20:56 → EDBEDREQTM 20:59 → EDBEDREQ 20:59 → ENRESERV 23:04 → 3WST 02-07 07:47
PROVIDERS: ADMIT Family Medicine Adult Medicine; ATTEND Family Medicine Adult Medicine
PROC: 5A1955Z Respiratory Ventilation, Greater than 96 Consecutive Hours (ICD-10-PCS; principal; 2020-01-28)
PROC: 0BH17EZ Insertion of Endotracheal Airway into Trachea, Via Natural or Artificial Opening (ICD-10-PCS; 2020-01-28)
PROC: 0D9670Z Drainage of Stomach with Drainage Device, Via Natural or Artificial Opening (ICD-10-PCS; 2020-01-28)
DX: A41.9 Sepsis, unspecified organism (principal); J96.02 Acute respiratory failure with hypercapnia; J69.0 Pneumonitis due to inhalation of food and vomit; J96.01 Acute respiratory failure with hypoxia; E87.2 Acidosis; T78.2XXA Anaphylactic shock, unspecified, initial encounter; K56.609 Unspecified intestinal obstruction, unspecified as to partial versus complete obstruction; K92.2 Gastrointestinal hemorrhage, unspecified; T78.3XXA Angioneurotic edema, initial encounter; E87.6 Hypokalemia; D63.8 Anemia in other chronic diseases classified elsewhere; E78.5 Hyperlipidemia, unspecified; E11.9 Type 2 diabetes mellitus without complications; J45.909 Unspecified asthma, uncomplicated; I11.9 Hypertensive heart disease without heart failure; D50.9 Iron deficiency anemia, unspecified; E11.65 Type 2 diabetes mellitus with hyperglycemia; E78.1 Pure hyperglyceridemia; R53.81 Other malaise; E66.9 Obesity, unspecified; R26.9 Unspecified abnormalities of gait and mobility; Z78.1 Physical restraint status; Z79.899 Other long term (current) drug therapy; Z68.26 Body mass index [BMI] 26.0-26.9, adult; Z82.49 Family history of ischemic heart disease and other diseases of the circulatory system; Z82.3 Family history of stroke; Z83.3 Family history of diabetes mellitus; R47.02 Dysphasia; R13.10 Dysphagia, unspecified
CPT/HCPCS: 31500; 36415; 36600; 71045; 74018; 80048; 80053; 80061; 81003; 82270; 82375; 82607; 82728; 82746; 82805; 82962; 83036; 83540; 83550; 83605; 83735; 84436; 84439; 84443; 84478; 84484; 85025; 86850; 86900; 87070; 92610; 93005; 93306; 94002; 94003; 94640; 96374; 96375; 97162; 97166; 97530; 99291; C9113; J0295; J0330; J0360; J0696; J1200; J1644; J1815; J2250; J2270; J2405; J2704; J2920; J2930; J3010; J3490; J7060; J7512; J7608